=== PATIENT | male | born 1970 | race Caucasian/White ===

== ENCOUNTER 2025-07-13 10:10 | Emergency (ER) | payer SELFPAY ==
[~2025-07-13] VITALS: Ht 170.2 cm; Wt 87.0 kg
[2025-07-13 10:13] VITALS: BP 127/77; TEMP 97.1; O2SAT 99
[2025-07-13] MEDS ORDERED: ACET-683 PO (10:24)
== END 2025-07-13 11:03 | disposition left against medical advice (07) ==
LOC: M ED 10:10
DX: Z53.21 Procedure and treatment not carried out due to patient leaving prior to being seen by health care provider (principal)

== ENCOUNTER 2025-08-11 15:25 | Emergency (ER) | payer SELFPAY ==
[~2025-08-11] VITALS: Ht 170.2 cm; Wt 90.4 kg
[~2025-08-11 15:25] MED LIST: ACET-683 PO
[2025-08-11 15:28] VITALS: BP 156/81; TEMP 97.9; O2SAT 98
[2025-08-11] MEDS ORDERED: TRIL600T PO (15:37)
[2025-08-11] MEDS ORDERED: TRIL1TAB PO (20:08)
== END 2025-08-11 16:34 | disposition left against medical advice (07) ==
LOC: M ED 15:25
DX: Z53.21 Procedure and treatment not carried out due to patient leaving prior to being seen by health care provider (principal)

== ENCOUNTER 2025-08-11 18:48 | Emergency (ER) | payer OTHER, SELFPAY ==
[~2025-08-11] VITALS: Ht 170.2 cm; Wt 89.9 kg
[~2025-08-11 18:48] MED LIST changes: +TRIL600T PO
[2025-08-11 19:04] VITALS: BP 139/61; TEMP 98.1; O2SAT 100
[2025-08-11] MEDS ORDERED: TRIL1TAB PO (20:08)
== END 2025-08-11 20:15 | disposition home or self-care (01) ==
LOC: M ED 18:48
DX: Z76.0 Encounter for issue of repeat prescription (principal); Z79.899 Other long term (current) drug therapy

== ENCOUNTER 2025-08-13 18:40 | Emergency (ER) | payer OTHER ==
[~2025-08-13] VITALS: Ht 170.2 cm; Wt 90.2 kg
[~2025-08-13 18:40] MED LIST changes: +TRIL1TAB PO
[2025-08-13 18:41] VITALS: BP 138/59; TEMP 96.8; O2SAT 95
== END 2025-08-13 19:06 | disposition left against medical advice (07) ==
LOC: M ED 18:40
DX: Z53.21 Procedure and treatment not carried out due to patient leaving prior to being seen by health care provider (principal)